=== PATIENT | male | born 1985 | race Caucasian/White ===

== ENCOUNTER 2016-05-27 07:50 | Emergency (ER) | payer OTHER ==
[2016-05-27 07:55] VITALS: TEMP 97.5; BMI 17.6
[2016-05-27] MEDS ORDERED: SODIUM CHLORIDE 1,000 ML IV STA (08:32)
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
[2016-05-27 08:55] LABS: BASOPHIL 0.3 % (0-2.0); EOSINOPHIL 0.1 % (0-4.5); MCH 27.8 pg (25.7-33.7); MCHC 32.6 g/dl (32.0-35.9); MEAN CELL VOLUME 85.1 fl (80-96); NEUTROPHILS 87.1 % (42.8-82.8); PLATELET COUNT 195 K/MM3 (134-434); RDW 14.2 % (11.9-15.9); WHITE BLOOD COUNT 16.2 K/mm3 (4.0-10.0)
[2016-05-27 09:28] LABS: ALBUMIN 4.6 g/dl (3.4-5.0); ALK PHOS 65 U/L (45-117); ANION GAP 10 (8-16); BILIRUBIN,TOTAL 0.6 mg/dL (0.2-1.0); CALCIUM 9.9 mg/dL (8.5-10.1); CO2 29 mmol/L (21-32); CREATININE 0.9 mg/dL (0.7-1.3); GLUCOSE,RANDOM 142 mg/dL (74-106); SGOT/AST 16 U/L (15-37); SGPT/ALT 17 U/L (12-78); TOT PROT 7.9 g/dl (6.4-8.2)
[2016-05-27] MEDS ORDERED: METOCLOPRAMIDE HCL INJECTION 10 MG/2 ML VIAL IVPB ONE (09:35)
[2016-05-27] MEDS ORDERED: FAMOTIDINE 20 MG/50 ML IVPB 20 MG in PREMIX 50 IVPB ONE (09:35)
[2016-05-27] MEDS ORDERED: morphine CARPU-JECT 2 MG/1 ML DISP.SYRIN IVPUSH ONE ×2 (09:35→12:16)
[2016-05-27] MEDS ORDERED: METOCLOPRAMIDE HCL INJECTION 10 MG/2 ML VIAL ONE (09:55)
[2016-05-27] MEDS ORDERED: morphine CARPU-JECT 4 MG/1 ML DISP.SYRIN ONE ×2 (09:55→12:24)
[2016-05-27] MEDS ORDERED: FAMOTIDINE 20 MG/50 ML IVPB 50 ML IVPB ONE (09:56)
[2016-05-27 10:04] LABS: URINE APPEARANCE CLEAR; URINE BILIRUBIN NEGATIVE (NEGATIVE); URINE BLOOD NEGATIVE (NEGATIVE); URINE COLOR AMBER; URINE GLUCOSE (UA) NEGATIVE (NEGATIVE); URINE KETONE NEGATIVE (NEGATIVE); URINE LEUK ESTERASE NEGATIVE (NEGATIVE); URINE NITRITE NEGATIVE (NEGATIVE); URINE UROBILINOGEN NEGATIVE E.U./dl (0.2-1.0)
[2016-05-27 10:07] LABS: URINE PROTEIN 1+ (NEGATIVE)
[2016-05-27 10:09] LABS: URINE MUCUS MANY; URINE RBC 4 /hpf (0-3); URINE WBC 3 /hpf (3-5)
[2016-05-27] MEDS ORDERED: LIDOCAINE VISCOUS 2% ORAL/TOP 20 ML UNIT-DOSE CUP MM ONE (10:41)
[2016-05-27] MEDS ORDERED: MAG HYDROX/AL HYDROX/SIMETH 30 ML UNIT-DOSE CUP PO ONE (10:41)
[2016-05-27] MEDS ORDERED: HYOSCYAMINE SULFATE 0.125 MG *ODT PO ONE (10:41)
[2016-05-27 10:53] LABS: URINE MARIJUANA THC POSITIVE ng/ml (CUTOFF=50)
[2016-05-27] MEDS ORDERED: MAG HYDROX/AL HYDROX/SIMETH 30 ML UNIT-DOSE CUP ONE (11:34)
[2016-05-27 12:50] VITALS: BP 147/88; PULSE 65
== END 2016-05-27 12:53 | disposition home or self-care (01) ==
LOC: JER 07:50
PROC: 3E0337Z Introduction of Electrolytic and Water Balance Substance into Peripheral Vein, Percutaneous Approach (ICD-10-PCS; principal; 2016-05-27)
PROC: 3E033GC Introduction of Other Therapeutic Substance into Peripheral Vein, Percutaneous Approach (ICD-10-PCS; 2016-05-27)
PROC: 3E033NZ Introduction of Analgesics, Hypnotics, Sedatives into Peripheral Vein, Percutaneous Approach (ICD-10-PCS; 2016-05-27)
PROC: 3E033NZ Introduction of Analgesics, Hypnotics, Sedatives into Peripheral Vein, Percutaneous Approach (ICD-10-PCS; 2016-05-27)
DX: K29.60 Other gastritis without bleeding (principal); G43.A0 Cyclical vomiting, in migraine, not intractable; T40.7X5A Adverse effect of cannabis (derivatives), initial encounter; Y92.038 Other place in apartment as the place of occurrence of the external cause
CPT/HCPCS: 36415; 80053; 80307; 81003; 81015; 83735; 85025; 99283-25

== ENCOUNTER 2016-05-27 19:11 | Emergency (ER) | payer OTHER ==
[2016-05-27 19:15] VITALS: BP 133/88; PULSE 61; TEMP 98.7; BMI 17.6
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
[2016-05-27] MEDS ORDERED: SODIUM CHLORIDE 0.9% 1000 ML INFUS.BAG IV ONE (20:17)
[2016-05-27] MEDS ORDERED: ONDANSETRON 4 MG/2 ML VIAL ONE (20:23)
[2016-05-27] MEDS ORDERED: KETOROLAC TROMETHAMINE 30 MG/1 ML VIAL IVPUSH ONE (20:36)
[2016-05-27] MEDS ORDERED: KETOROLAC TROMETHAMINE 30 MG/1 ML VIAL ONE (20:40)
== END 2016-05-27 21:03 | disposition home or self-care (01) ==
LOC: JER 19:11
PROC: 3E0333Z Introduction of Anti-inflammatory into Peripheral Vein, Percutaneous Approach (ICD-10-PCS; principal; 2016-05-27)
DX: R10.84 Generalized abdominal pain (principal); R11.2 Nausea with vomiting, unspecified; K29.00 Acute gastritis without bleeding; R16.0 Hepatomegaly, not elsewhere classified; F12.10 Cannabis abuse, uncomplicated
CPT/HCPCS: 99281-25

== ENCOUNTER 2017-03-11 18:06 | Emergency (ER) | payer OTHER ==
--- NOTE | 2017-03-11 19:04 | PDOC ---
Rapid Medical Evaluation Time Seen by Provider: 03/11/17 18:28 Medical Evaluation: Allergies Allergy/AdvReac Type Severity Reaction Status Date / Time No Known Allergies Allergy Verified 05/27/16 19:13 03/11/17 19:02 I have performed a brief in-person evaluation of this patient. The patient presents with a chief complaint of: "Pancreatitis" +n/v/f/c Pertinent physical exam findings:diffuse abd pain I have ordered the following:cbc,cmp, amylase,lipase,lactic acid, ua The patient will proceed to the ED for further evaluation.
[2017-03-11 19:07] VITALS: BP 126/52; PULSE 68; TEMP 98.6; BMI 18.3
[2017-03-11 19:22] LABS: BASO % 0.1 % (0-2.0); EOS % 0.1 % (0-4.5); LYMPH # 0.7; MCHC 32.4 g/dl (32.0-35.9); MEAN CELL VOLUME 86.3 fl (80-96); MEAN PLT VOLUME 9.1 fl (7.5-11.1); NEUT # 15.9 #; NEUT % 89.8 % (42.8-82.8); PLATELET COUNT 198 K/MM3 (134-434); WHITE BLOOD COUNT 17.7 K/mm3 (4.0-10.0)
[2017-03-11] MEDS ORDERED: SODIUM CHLORIDE 1,000 ML IV STA (19:49)
[2017-03-11 19:50] LABS: ALBUMIN 4.4 g/dl (3.4-5.0); ALK PHOS 76 U/L (45-117); AMYLASE 54 U/L (25-115); ANION GAP 6 (8-16); BILIRUBIN,TOTAL 0.6 mg/dL (0.2-1.0); CALCIUM 9.5 mg/dL (8.5-10.1); CO2 28 mmol/L (21-32); CREATININE 0.8 mg/dL (0.7-1.3); GLUCOSE,RANDOM 113 mg/dL (74-106); SGOT/AST 15 U/L (15-37); SGPT/ALT 20 U/L (12-78); TOT PROT 7.7 g/dl (6.4-8.2)
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
[2017-03-11] MEDS ORDERED: ACETAMINOPHEN 1000 MG/100 ML VIAL (NON FORMULARY) IVPB ONE (20:28)
[2017-03-11 21:51] LABS: PLATELET ESTIMATE ADEQUATE
[2017-03-11] MEDS ORDERED: KETOROLAC TROMETHAMINE 30 MG/1 ML VIAL IVPUSH ONE (22:23)
[2017-03-11] MEDS ORDERED: KETOROLAC TROMETHAMINE 30 MG/1 ML VIAL ONE (22:24)
[2017-03-11] MEDS ORDERED: MAG HYDROX/AL HYDROX/SIMETH 30 ML UNIT-DOSE CUP ONE (22:25)
== END 2017-03-11 22:30 | disposition home or self-care (01) ==
LOC: JER 18:06
PROC: 3E0337Z Introduction of Electrolytic and Water Balance Substance into Peripheral Vein, Percutaneous Approach (ICD-10-PCS; principal; 2017-03-11)
PROC: 3E033NZ Introduction of Analgesics, Hypnotics, Sedatives into Peripheral Vein, Percutaneous Approach (ICD-10-PCS; 2017-03-11)
DX: K86.89 Other specified diseases of pancreas (principal); F11.20 Opioid dependence, uncomplicated; Z76.5 Malingerer [conscious simulation]
CPT/HCPCS: 36415; 74020-TC; 76705-TC; 80053; 82150; 83690; 85025; 99281-25

== ENCOUNTER 2017-03-16 15:29 | Emergency (ER) | payer OTHER ==
[2017-03-16 15:40] VITALS: BP 149/72; PULSE 50; TEMP 98.3; BMI 17.6
--- NOTE | 2017-03-16 15:44 | PDOC ---
Rapid Medical Evaluation Time Seen by Provider: 03/16/17 15:38 Medical Evaluation: Allergies Allergy/AdvReac Type Severity Reaction Status Date / Time No Known Allergies Allergy Verified 03/11/17 21:23 I have performed a brief in-person evaluation of this patient. The patient presents with a chief complaint of: vomiting x 5 days with abdominal pain; prior history of pancreatitis and enlarged liver Pertinent physical exam findings: Moderately dry mucous membranes, RUQ and RLQ TTP. No rebound, guarding or rigidity I have ordered the following: UA/culture, labs The patient will proceed to the ED for further evaluation. 03/16/17 15:44
[2017-03-16 16:26] LABS: BASO % 0.4 % (0-2.0); EOS % 0.8 % (0-4.5); HEMATOCRIT 46.1 % (35.4-49); HEMOGLOBIN 14.9 GM/dL (11.7-16.9); LYMPH % 10.7 % (8-40); MCH 27.5 pg (25.7-33.7); MCHC 32.3 g/dl (32.0-35.9); MEAN CELL VOLUME 85.1 fl (80-96); MEAN PLT VOLUME 9.3 fl (7.5-11.1); MONO % 9.2 % (3.8-10.2); NEUT % 78.9 % (42.8-82.8); PLATELET COUNT 182 K/MM3 (134-434); RBC 5.42 M/mm3 (4.00-5.60); RDW 13.9 % (11.9-15.9); WHITE BLOOD COUNT 11.3 K/mm3 (4.0-10.0)
[2017-03-16 17:18] LABS: ANION GAP 7 (8-16); BLOOD UREA NITROGEN 16 mg/dL (7-18); CALCIUM 8.6 mg/dL (8.5-10.1); CHLORIDE 105 mmol/L (98-107); CO2 30 mmol/L (21-32); GLUCOSE,RANDOM 88 mg/dL (74-106); POTASSIUM 3.5 mmol/L (3.5-5.1); SGOT/AST 10 U/L (15-37); SGPT/ALT 17 U/L (12-78); SODIUM 142 mmol/L (136-145)
[2017-03-16 17:20] LABS: ALK PHOS 61 U/L (45-117); BILIRUBIN,TOTAL 1.2 mg/dL (0.2-1.0); TOT PROT 6.8 g/dl (6.4-8.2)
[2017-03-16] MEDS ORDERED: SODIUM CHLORIDE 0.9% 1000 ML INFUS.BAG IV ONE (19:08)
[2017-03-16] MEDS ORDERED: METOCLOPRAMIDE HCL INJECTION 10 MG/2 ML VIAL IVPUSH ONE (19:08)
[2017-03-16] MEDS ORDERED: LIDOCAINE VISCOUS 2% ORAL/TOP 20 ML UNIT-DOSE CUP MM ONE (19:09)
[2017-03-16] MEDS ORDERED: MAG HYDROX/AL HYDROX/SIMETH 355 ML ORAL.SUSP PO ONE (19:09)
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
[2017-03-16] MEDS ORDERED: FAMOTIDINE 20 MG/50 ML IVPB 20 MG/50 ML MG IVPB ONE ×2 (19:45→20:04)
[2017-03-16] MEDS ORDERED: LIDOCAINE VISCOUS 2% ORAL/TOP 20 ML UNIT-DOSE CUP ONE (20:03)
[2017-03-16] MEDS ORDERED: MAG HYDROX/AL HYDROX/SIMETH 30 ML UNIT-DOSE CUP ONE (20:04)
[2017-03-16] MEDS ORDERED: METOCLOPRAMIDE HCL INJECTION 10 MG/2 ML VIAL ONE (20:04)
[2017-03-16] MEDS ORDERED: DICYCLOMINE HCL 10 MG CAPSULE PO ONE (22:13)
[2017-03-16] MEDS ORDERED: DICYCLOMINE HCL 10 MG CAPSULE ONE (22:38)
== END 2017-03-16 22:41 | disposition home or self-care (01) ==
LOC: JER 15:29
PROC: 3E033GC Introduction of Other Therapeutic Substance into Peripheral Vein, Percutaneous Approach (ICD-10-PCS; principal; 2017-03-16)
DX: Z76.5 Malingerer [conscious simulation] (principal); R11.2 Nausea with vomiting, unspecified; Z87.19 Personal history of other diseases of the digestive system
CPT/HCPCS: 36415; 76705-TC; 80053; 83605; 85025; 99283-25

== ENCOUNTER 2018-01-25 13:54 | Emergency (ER) | payer SELFPAY ==
[2018-01-25 14:22] VITALS: TEMP 99.2; BMI 41.8
[2018-01-25] MEDS ORDERED: ONDANSETRON 4 MG/2 ML VIAL ONE (14:52)
[2018-01-25] MEDS ORDERED: morphine CARPU-JECT 2 MG/1 ML DISP.SYRIN IVPUSH ONE ×2 (14:54→17:50)
[2018-01-25] MEDS ORDERED: ONDANSETRON 4 MG/2 ML VIAL IVPUSH ONE (14:54)
[2018-01-25] MEDS ORDERED: SODIUM CHLORIDE 1,000 ML IV STA ×2 (14:54→16:10)
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
[2018-01-25] MEDS ORDERED: morphine SULFATE 4 MG/ML VIAL ONE (15:09)
[2018-01-25 15:14] LABS: BASO % 0.3 % (0-2.0); EOS % 0.1 % (0-4.5); HEMATOCRIT 49.3 % (35.4-49); HEMOGLOBIN 16.4 GM/dL (11.7-16.9); LYMPH % 9.1 % (8-40); MCH 28.5 pg (25.7-33.7); MCHC 33.3 g/dl (32.0-35.9); MEAN CELL VOLUME 85.7 fl (80-96); MEAN PLT VOLUME 9.1 fl (7.5-11.1); MONO % 12.4 % (3.8-10.2); NEUT % 78.1 % (42.8-82.8); PLATELET COUNT 262 K/MM3 (134-434); RBC 5.76 M/mm3 (4.00-5.60); RDW 14.3 % (11.9-15.9); WHITE BLOOD COUNT 12.9 K/mm3 (4.0-10.0)
[2018-01-25 15:45] LABS: ALBUMIN 4.6 g/dl (3.4-5.0); ALK PHOS 82 U/L (45-117); AMYLASE 96 U/L (25-115); ANION GAP 9 MMOL/L (8-16); BILIRUBIN,TOTAL 0.9 mg/dL (0.2-1); BLOOD UREA NITROGEN 19 mg/dL (7-18); CALCIUM 9.6 mg/dL (8.5-10.1); CHLORIDE 97 mmol/L (98-107); CO2 32 mmol/L (21-32); CREATININE 1.1 mg/dL (0.55-1.3); GLUCOSE,RANDOM 91 mg/dL (74-106); LIPASE 159 U/L (73-393); MAGNESIUM 2.4 mg/dL (1.8-2.4); POTASSIUM 3.8 mmol/L (3.5-5.1); SGOT/AST 15 U/L (15-37); SGPT/ALT 16 U/L (13-61); SODIUM 138 mmol/L (136-145); TOT PROT 8.3 g/dl (6.4-8.2)
[2018-01-25] MEDS ORDERED: MAG HYDROX/AL HYDROX/SIMETH 30 ML UNIT-DOSE CUP PO ONE (16:11)
[2018-01-25] MEDS ORDERED: LIDOCAINE VISCOUS 2% ORAL/TOP 20 ML UNIT-DOSE CUP MM ONE (16:11)
[2018-01-25] MEDS ORDERED: MAG HYDROX/AL HYDROX/SIMETH 30 ML UNIT-DOSE CUP ONE (16:44)
[2018-01-25] MEDS ORDERED: LIDOCAINE VISCOUS 2% ORAL/TOP 20 ML UNIT-DOSE CUP ONE (16:44)
[2018-01-25] MEDS ORDERED: HYOSCYAMINE SULFATE 0.125 MG *ODT PO ONE (16:56)
[2018-01-25] MEDS ORDERED: KETOROLAC TROMETHAMINE 30 MG/1 ML VIAL IVPUSH ONE (17:03)
[2018-01-25] MEDS ORDERED: KETOROLAC TROMETHAMINE 30 MG/1 ML VIAL ONE (17:40)
[2018-01-25] MEDS ORDERED: FAMOTIDINE 20 MG/50 ML IVPB 20 MG/50 ML MG IVPB ONE ×2 (17:51→17:58)
[2018-01-25] MEDS ORDERED: LORazepam 0.5 MG TABLET ONE (17:58)
[2018-01-25] MEDS ORDERED: MORPHINE SULFATE 2 MG/ML VIAL ONE (18:05)
[2018-01-25 19:12] VITALS: BP 109/56; PULSE 69
== END 2018-01-25 19:15 | disposition home or self-care (01) ==
LOC: JER 13:54
PROC: 3E033GC Introduction of Other Therapeutic Substance into Peripheral Vein, Percutaneous Approach (ICD-10-PCS; principal; 2018-01-25)
PROC: 3E0333Z Introduction of Anti-inflammatory into Peripheral Vein, Percutaneous Approach (ICD-10-PCS; 2018-01-25)
PROC: 3E033NZ Introduction of Analgesics, Hypnotics, Sedatives into Peripheral Vein, Percutaneous Approach (ICD-10-PCS; 2018-01-25)
PROC: 3E0337Z Introduction of Electrolytic and Water Balance Substance into Peripheral Vein, Percutaneous Approach (ICD-10-PCS; 2018-01-25)
DX: F12.20 Cannabis dependence, uncomplicated (principal); G43.A0 Cyclical vomiting, in migraine, not intractable
CPT/HCPCS: 36415; 80053; 82150; 83690; 83735; 85025; 99282-25; J7030

== ENCOUNTER 2018-06-12 05:23 | Emergency (ER) | payer SELFPAY ==
[2018-06-12 05:49] VITALS: BP 120/61; PULSE 77; TEMP 97.8; BMI 19.0
[2018-06-12] MEDS ORDERED: ACETAMINOPHEN 500 MG TABLET (FP) PO ONE (06:01)
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
[2018-06-12] MEDS ORDERED: ACETAMINOPHEN 325 MG TABLET (FP) ONE (06:30)
--- NOTE | 2018-06-12 06:49 | PDOC ---
Attending Attestation - Resident Resident Name: Bill Seguraorn - ED Attending Attestation I have performed the following: I have examined & evaluated the patient, The case was reviewed & discussed with the resident, I agree w/resident's findings & plan, Exceptions are as noted - HPI HPI: 06/12/18 06:46 32 yo male with no pmhx here with c/o laceration right hand. pt states day prior he hit a glass window, sustaining laceration. now mild pain. tetanus utd. no f/c no weakenss or numbness. no other comlaints. he soaked it at home. injury happened day prior. - Physicial Exam PE: 06/12/18 06:47 awake alert lungs clear bilaterally heart rrr no mrg abd soft nt nd right hand with laceration. n/v intact. - Medical Decision Making 06/12/18 06:47 due to delay in presentation , no sutures. pt wound cleaned, tetanus uptodate. xray r/o fb fracture. if negative dc with local wound care. 06/12/18 07:25 pt unwilling to wait for xray, will dc on keflex. to home.
--- NOTE | 2018-06-12 07:17 | PDOC ---
*Physical Exam - Vital Signs Last Vital Signs Temp Pulse Resp BP Pulse Ox 97.8 F 77 18 120/61 100 06/12/18 05:46 06/12/18 05:46 06/12/18 05:46 06/12/18 05:46 06/12/18 05:46 - Physical Exam Comments: 06/12/18 07:18 continuation of care as from Resident Cherie, see note for further history ED Treatment Course - Medications Given in the ED: ED Medications Discontinued Medications Generic Name Dose Route Start Last Admin Trade Name Angelo PRN Reason Stop Dose Admin Acetaminophen 975 mg 06/12/18 06:01 06/12/18 06:33 Tylenol - PO 06/12/18 06:02 975 mg ONCE ONE Administration Medical Decision Making - Medical Decision Making 06/12/18 07:19 Patient would not like to wait for Xray Patient's hand laceration from two days ago, not subject to stiches or wash out Antbiotics will be prescribed and patient should f/u with PCP 06/12/18 07:39 bacitracin applied to the area, gauze placed over two open wounds discussed with patient to keep area dry and clean *DC/Admit/Observation/Transfer Diagnosis at time of Disposition: Hand injury Qualifiers: Encounter type: initial encounter Laterality: right Qualified Code(s): S69.91XA - Unspecified injury of right wrist, hand and finger(s), initial encounter - Discharge Dispostion Disposition: HOME Condition at time of disposition: Improved - Prescriptions Prescriptions: Cephalexin [Keflex] 500 mg PO TID #15 capsule - Referrals - Patient Instructions Printed Discharge Instructions: DI for Hand Injury Additional Instructions: You came to the hospital for an injury to your hand. We monitored you while you were here. To treat any infection in your hand we are going to prescribe you an antibiotic. Please take the antibiotic: Keflex three times a day by mouth for one week Please soak your hand twice a day in warm water and soap. Please keep the open areas dry and clean Please make an appointment with your primary care physician within one week to follow up. Return to the Emergency Department if you have nausea, vomiting, fevers, your hand becomes cold, numbness, tingling, headache, or shortness of breath. - Post Discharge Activity
[2018-06-12] MEDS ORDERED: BACITRACIN 0.9 GM PACKET ONE (07:28)
[2018-06-12] MEDS ORDERED: BACITRACIN 15 GM TUBE TOPICAL OINTMENT TP ONE (07:40)
== END 2018-06-12 08:20 | disposition home or self-care (01) ==
LOC: JER 05:23
DX: S61.210A Laceration without foreign body of right index finger without damage to nail, initial encounter (principal); S60.511A Abrasion of right hand, initial encounter; W01.110A Fall on same level from slipping, tripping and stumbling with subsequent striking against sharp glass, initial encounter; Y93.89 Activity, other specified; Y92.89 Other specified places as the place of occurrence of the external cause; Y99.8 Other external cause status
CPT/HCPCS: 99282-25

== ENCOUNTER 2019-04-25 16:41 | Inpatient (IN) | payer OTHER ==
[2019-04-25 16:51] VITALS: BMI 18.3
[2019-04-25] MEDS ORDERED: ONDANSETRON 4 MG/2 ML VIAL IVPUSH ONE (17:05)
--- NOTE | 2019-04-25 17:05 | PDOC ---
Rapid Medical Evaluation Chief Complaint: Pain Time Seen by Provider: 04/25/19 16:47 Medical Evaluation: Allergies Allergy/AdvReac Type Severity Reaction Status Date / Time No Known Allergies Allergy Verified 04/25/19 16:47 Vital Signs Temp Pulse Resp BP Pulse Ox 98.1 F 56 L 18 116/72 97 04/25/19 16:48 04/25/19 16:48 04/25/19 16:48 04/25/19 16:48 04/25/19 16:48 04/25/19 17:04 Pt c/o : n/v, weakness. hx of the same, no other complaints Pt on brief exam: dry heaving, vss, + epigastric tenderness Pt ordered for : labs, meds, ivf Pt to proceed to the ED Discharge Disposition - Diagnosis Intractable nausea and vomiting - Referrals - Patient Instructions - Post Discharge Activity
[2019-04-25] MEDS ORDERED: PANTOPRAZOLE SODIUM 40 MG VIAL IVPUSH ONE (17:06)
[2019-04-25] MEDS ORDERED: SODIUM CHLORIDE 1,000 ML IV STA ×2 (17:06→19:10)
[2019-04-25] MEDS ORDERED: morphine CARPU-JECT 2 MG/1 ML DISP.SYRIN IVPUSH ONE (17:56)
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
[2019-04-25] MEDS ORDERED: PANTOPRAZOLE SODIUM 40 MG VIAL ONE (18:28)
[2019-04-25] MEDS ORDERED: ONDANSETRON 4 MG/2 ML VIAL ONE (18:28)
[2019-04-25 18:40] LABS: BASO % 0.2 % (0-2.0); HEMATOCRIT 45.9 % (35.4-49); HEMOGLOBIN 14.9 GM/dL (11.7-16.9); LYMPH % 2.7 % (8-40); MCH 27.9 pg (25.7-33.7); MCHC 32.3 g/dl (32.0-35.9); MEAN CELL VOLUME 86.4 fl (80-96); MEAN PLT VOLUME 8.7 fl (7.5-11.1); MONO % 7.2 % (3.8-10.2); NEUT % 89.9 % (42.8-82.8); RBC 5.31 M/mm3 (4.00-5.60); RDW 14.3 % (11.9-15.9); WHITE BLOOD COUNT 16.9 K/mm3 (4.0-10.0)
[2019-04-25 19:05] LABS: ALBUMIN 4.4 g/dl (3.4-5.0); BILIRUBIN,TOTAL 0.7 mg/dL (0.2-1); BLOOD UREA NITROGEN 10.2 mg/dL (7-18); CALCIUM 9.6 mg/dL (8.5-10.1); CREATININE 0.9 mg/dL (0.55-1.3); POTASSIUM 4.2 mmol/L (3.5-5.1); TOT PROT 7.6 g/dl (6.4-8.2)
[2019-04-25 19:06] LABS: PLATELET COUNT 236 K/MM3 (134-434); PLATELET ESTIMATE ADEQUATE
[2019-04-25] MEDS ORDERED: METOCLOPRAMIDE HCL INJECTION 10 MG/2 ML VIAL IVPB ONE (19:10)
[2019-04-25] MEDS ORDERED: METOCLOPRAMIDE HCL INJECTION 10 MG/2 ML VIAL ONE (19:15)
[2019-04-25] MEDS ORDERED: MORPHINE SULFATE 2 MG/ML VIAL ONE (19:15)
[2019-04-25 20:11] LABS: PH,URINE >= 9.0 (5.0-8.0); URINE APPEARANCE CLOUDY; URINE BILIRUBIN NEGATIVE (NEGATIVE); URINE COLOR YELLOW; URINE GLUCOSE (UA) NEGATIVE (NEGATIVE); URINE KETONE NEGATIVE (NEGATIVE); URINE LEUK ESTERASE NEGATIVE (NEGATIVE); URINE NITRITE NEGATIVE (NEGATIVE); URINE PROTEIN TRACE (NEGATIVE)
[2019-04-25 20:16] LABS: COCAINE, UR NEGATIVE ng/ml (CUTOFF=300); METHADONE, UR NEGATIVE ng/ml (CUTOFF=300); OPIATES, URI NEGATIVE ng/ml (CUTOFF=300); PHENCYCLIDINE,URINE NEGATIVE ng/ml (CUTOFF=25); URINE AMPHETAMINES NEGATIVE ng/ml (CUTOFF=500); URINE BARBITURATES NEGATIVE ng/ml (CUTOFF=200); URINE BENZODIAZEPINES NEGATIVE ng/ml (CUTOFF=200)
[2019-04-25] MEDS ORDERED: LORazepam 2 MG/ML SDV VIAL ONE (20:30)
[2019-04-25 21:02] LABS: HEMATOCRIT 42.8 % (35.4-49); HEMOGLOBIN 13.9 GM/dL (11.7-16.9); MCH 27.9 pg (25.7-33.7); MCHC 32.5 g/dl (32.0-35.9); MEAN CELL VOLUME 85.8 fl (80-96); MEAN PLT VOLUME 8.5 fl (7.5-11.1); PLATELET COUNT 202 K/MM3 (134-434); RBC 4.99 M/mm3 (4.00-5.60); RDW 14.2 % (11.9-15.9); WHITE BLOOD COUNT 18.3 K/mm3 (4.0-10.0)
--- NOTE | 2019-04-25 22:39 | PDOC ---
*Physical Exam - Vital Signs Last Vital Signs Temp Pulse Resp BP Pulse Ox 99.9 F H 70 18 130/69 99 04/25/19 21:47 04/25/19 21:47 04/25/19 21:47 04/25/19 21:47 04/25/19 21:47 - Physical Exam 04/25/19 22:43 General Appearance: Nourished. No Apparent Distress HEENT: No Pharyngeal Erythema, Tonsillar Exudate, Tonsillar Erythema Neck: No Cervical Lymphadenopathy Respiratory/Chest: Lungs Clear, Normal Breath Sounds. No Crackles, Rales, Rhonchi, Wheezing Cardiovascular: Regular Rhythm, Regular Rate. No Murmur, Gallops, Rubs Gastrointestinal/Abdominal: Normal Bowel Sounds, Soft. Mild Epigastric discomfort with palpation. No Guarding, Rebound, Musculoskeletal: No CVA Tenderness Extremity: Normal Capillary Refill Integumentary: Normal Color, Dry, Warm Neurologic: Fully Oriented, Alert, Normal Mood/Affect, Normal Response, ED Treatment Course - LABORATORY CBC & Chemistry Diagram: 04/25/19 20:55 04/25/19 18:15 - ADDITIONAL ORDERS Additional order review: Laboratory Results 04/25/19 04/25/19 04/25/19 19:10 19:10 18:15 Sodium 138 Potassium 4.2 Chloride 104 Carbon Dioxide 29 Anion Gap 5 L BUN 10.2 Creatinine 0.9 Est GFR (CKD-EPI)AfAm 131.44 Est GFR (CKD-EPI)NonAf 113.41 Random Glucose 122 H Calcium 9.6 Magnesium 2.0 Total Bilirubin 0.7 AST 10 L ALT 17 Alkaline Phosphatase 69 Total Protein 7.6 Albumin 4.4 Lipase 79 Urine Color Yellow Urine Appearance Cloudy Urine pH >= 9.0 H D Ur Specific [place] 1.023 Urine Protein Trace Urine Glucose (UA) Negative Urine Ketones Negative Urine Blood Negative Urine Nitrite Negative Urine Bilirubin Negative Urine Urobilinogen 1.0 Ur Leukocyte Esterase Negative Opiates Screen Negative Methadone Screen Negative Barbiturate Screen Negative Phencyclidine Screen Negative Ur Amphetamines Screen Negative MDMA (Ecstasy) Screen Negative Benzodiazepines Screen Negative Cocaine Screen Negative U Marijuana (THC) Screen Positive A* 04/25/19 04/25/19 20:55 18:15 RBC 4.99 5.31 MCV 85.8 86.4 MCHC 32.5 32.3 RDW 14.2 14.3 MPV 8.5 8.7 Neutrophils % 89.9 H Lymphocytes % 2.7 L D Monocytes % 7.2 Eosinophils % 0.0 D Basophils % 0.2 - Medications Given in the ED: ED Medications Discontinued Medications Generic Name Dose Route Start Last Admin Trade Name Freq PRN Reason Stop Dose Admin Diphenhydramine HCl 25 mg 04/25/19 20:02 04/25/19 20:44 Benadryl Injection - IVPUSH 04/25/19 20:03 25 mg ONCE ONE Administration Sodium Chloride 1,000 mls @ 1,000 mls/hr 04/25/19 17:06 04/25/19 18:26 Normal Saline - IV 04/25/19 18:05 1,000 mls/hr ASDIR STA Administration Sodium Chloride 1,000 mls @ 1,000 mls/hr 04/25/19 19:10 04/25/19 19:23 Normal Saline - IV 04/25/19 20:09 1,000 mls/hr ASDIR STA Administration Lorazepam 1 mg 04/25/19 20:02 04/25/19 20:44 Ativan Injection - IVPUSH 04/25/19 20:03 1 mg ONCE ONE Administration Metoclopramide HCl 10 mg 04/25/19 19:10 04/25/19 19:23 Reglan Injection - IVPB 04/25/19 19:11 10 mg ONCE ONE Administration Morphine Sulfate 2 mg 04/25/19 17:56 04/25/19 19:22 Morphine Injection - IVPUSH 04/25/19 17:57 2 mg ONCE ONE Administration Ondansetron HCl 4 mg 04/25/19 17:05 04/25/19 18:35 Zofran Injection IVPUSH 04/25/19 17:06 4 mg ONCE ONE Administration Pantoprazole Sodium 40 mg 04/25/19 17:06 04/25/19 18:35 Protonix Iv IVPUSH 04/25/19 17:07 40 mg ONCE ONE Administration ED Progress Note - Progress Note Progress Note: 04/25/19 22:43 The patient is a 33 year old male with a history of cannabanoid hyperemasis who presented to the ED for evaluation of abdominal pain, nausea, vomiting, and inability to tolerate PO intake similar to his prior episodes of cannabanoid hyperemasis. The patient's lab work up has been unremarkable thus far besides an increasing WBC form 16 to 18. He is pending CT abdomen/pelvis and reassessment. Medical Decision Making - Medical Decision Making 04/26/19 06:38 CT abdomen/pelvis was unremarkable. The patient continues to be unable to tolerate PO intake despite multiple attempts. The patient continues to complain of persistent abdominal pain. Given his persistent symptoms, he will require admission for further monitoring and management. Discharge - Discharge Information Problems reviewed: Yes Clinical Impression/Diagnosis: Intractable nausea and vomiting, Abdominal pain Condition: Stable - Admission Yes - Follow up/Referral - Patient Discharge Instructions - Post Discharge Activity
[2019-04-26] MEDS ORDERED: SODIUM CHLORIDE 1,000 ML IV SCH (01:45)
[2019-04-26] MEDS ORDERED: DEXTROSE 5%-NORMAL SALINE 1,000 ML IV SCH (03:00)
[2019-04-26] MEDS ORDERED: ONDANSETRON 4 MG/2 ML VIAL IVPUSH PRN (03:02)
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
[2019-04-26] MEDS: ACETAMINOPHEN 1000 MG/100 ML VIAL (NON FORMULARY) IVPB PRN ×2 (04:54→10:17)
[2019-04-26 06:19] VITALS: BP 123/84; PULSE 94; TEMP 99.6
[2019-04-26] MEDS ORDERED: PROCHLORPERAZINE INJECTION 10 MG/2 ML VIAL IVPB ONE (09:02)
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
[2019-04-26 09:14] LABS: HEMATOCRIT 39.5 % (35.4-49); HEMOGLOBIN 12.9 GM/dL (11.7-16.9); MCH 27.7 pg (25.7-33.7); MCHC 32.6 g/dl (32.0-35.9); MEAN CELL VOLUME 84.8 fl (80-96); MEAN PLT VOLUME 8.7 fl (7.5-11.1); PLATELET COUNT 216 K/MM3 (134-434); RBC 4.65 M/mm3 (4.00-5.60); RDW 14.1 % (11.9-15.9); WHITE BLOOD COUNT 16.3 K/mm3 (4.0-10.0)
[2019-04-26 09:58] LABS: ALBUMIN 3.4 g/dl (3.4-5.0); BILIRUBIN,TOTAL 0.6 mg/dL (0.2-1); BLOOD UREA NITROGEN 6.9 mg/dL (7-18); CALCIUM 8.8 mg/dL (8.5-10.1); CREATININE 0.9 mg/dL (0.55-1.3); MAGNESIUM 1.7 mg/dL (1.8-2.4); PHOSPHOROUS 2.5 mg/dL (2.5-4.9); POTASSIUM 3.5 mmol/L (3.5-5.1); TOT PROT 6.3 g/dl (6.4-8.2)
[2019-04-26] MEDS ORDERED: ENOXAPARIN NA (PORCINE) 40 MG/0.4 ML DISP.SYRIN SQ SCH (10:00)
[2019-04-26] MEDS ORDERED: PANTOPRAZOLE SODIUM 40 MG VIAL IVPUSH SCH (10:00)
[2019-04-26] MEDS ORDERED: NICOTINE 14 MG/24 HOURS TOPICAL PATCH TD SCH (10:00)
[2019-04-26] MEDS ORDERED: MAGNESIUM SULF 50% (8.12 MEQ/2 ML-1 GM VIAL) IVPB ONE (12:02)
[2019-04-26] MEDS ORDERED: PROCHLORPERAZINE INJECTION 10 MG/2 ML VIAL IVPB PRN (16:13)
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
[2019-04-26] MEDS ORDERED: diphenhydrAMINE HCL 25 MG CAPSULE (FP) PO ONE (19:00)
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
== END 2019-04-26 18:53 | disposition left against medical advice (07) | DRG 770 ==
LOC: JER 16:41 → JERBED 04-26 02:21 → J6S 04-26 04:21
PROVIDERS: ADMIT Internal Medicine; ATTEND Internal Medicine
DX: F12.188 Cannabis abuse with other cannabis-induced disorder (principal); R11.2 Nausea with vomiting, unspecified; F12.90 Cannabis use, unspecified, uncomplicated; R10.9 Unspecified abdominal pain; F17.210 Nicotine dependence, cigarettes, uncomplicated
CPT/HCPCS: 36415; 74176-TC; 80053; 80307; 81003; 83690; 83735; 84100; 85025; 85027; 99285-25; J0131; J7030

== ENCOUNTER 2019-07-08 09:03 | Emergency (ER) | payer OTHER ==
[2019-07-08] MEDS ORDERED: FAMOTIDINE 20 MG/50 ML IVPB 20 MG/50 ML MG IVPB ONE ×2 (09:18→09:33)
[2019-07-08] MEDS ORDERED: ONDANSETRON 4 MG/2 ML VIAL IVPUSH ONE (09:18)
[2019-07-08] MEDS ORDERED: ACETAMINOPHEN 1000 MG/100 ML VIAL (NON FORMULARY) IVPB ONE (09:18)
[2019-07-08] MEDS ORDERED: LACTATED RINGERS SOLUTION 1000 ML INFUS.BAG IV ONE ×2 (09:19→10:39)
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
[2019-07-08 09:26] VITALS: BP 150/77; PULSE 63; TEMP 101; BMI 24.4
[2019-07-08] MEDS ORDERED: ONDANSETRON 4 MG/2 ML VIAL ONE (09:32)
[2019-07-08] MEDS ORDERED: ACETAMINOPHEN INJECTION 100 ML IVPB ONE (09:32)
[2019-07-08 09:42] LABS: BASO % 0.1 % (0-2.0); HEMATOCRIT 47.5 % (35.4-49); HEMOGLOBIN 15.4 GM/dL (11.7-16.9); LYMPH % 2.4 % (8-40); MCH 27.8 pg (25.7-33.7); MCHC 32.4 g/dl (32.0-35.9); MEAN CELL VOLUME 85.7 fl (80-96); MEAN PLT VOLUME 9.1 fl (7.5-11.1); MONO % 6.3 % (3.8-10.2); NEUT % 91.2 % (42.8-82.8); PLATELET COUNT 257 K/MM3 (134-434); RBC 5.55 M/mm3 (4.00-5.60); RDW 14.6 % (11.9-15.9); WHITE BLOOD COUNT 23.9 K/mm3 (4.0-10.0)
[2019-07-08] MEDS ORDERED: MAG HYDROX/AL HYDROX/SIMETH 30 ML UNIT-DOSE CUP PO ONE (09:50)
[2019-07-08] MEDS ORDERED: LIDOCAINE VISCOUS 2% ORAL/TOP 20 ML UNIT-DOSE CUP MM ONE (09:50)
--- NOTE | 2019-07-08 09:52 | PDOC ---
Documentation entered by Chip Blankenship SCRIBE, acting as scribe for Yue Rao DO. Yue Rao DO: This documentation has been prepared by the Shayna finch Nirvannie, SCRIBE, under my direction and personally reviewed by me in its entirety. I confirm that the documentation accurately reflects all work, treatment, procedures, and medical decision making performed by me. Attending Attestation - Resident Resident Name: ChristinaRuth - ED Attending Attestation I have performed the following: I have examined & evaluated the patient, The case was reviewed & discussed with the resident, I agree w/resident's findings & plan, Exceptions are as noted - HPI HPI: 07/08/19 09:55 The patient is a 33 year old male with a significant past medical history of gastritis, pancreatitis, pericardial effusion (s/p cardiac window), and ? cannabinoid hyperemesis who presents to the ED with 2 days of upper abdominal pain described as a soreness with nonbloody emesis. As per patient, he is unable to tolerate PO intake and endorses taking Tylenol at home, without relief secondary to vomiting. He notes smoking marijuana twice two days ago just prior to the onset of his symptoms. Patient notes his symptoms to feel similar to previous episodes of pancreatitis. While in the ED, per patient the only thing that helps him is Dilaudid for his pain, reglan, and benadryl (for his anxiety). Patient does not follow up with GI. He denies cough, chest pain, or shortness of breath. Allergies: NKDA - Physicial Exam PE: 07/08/19 09:59 Constitutional: Sleeping in the room but, moans in pain when awoken. Awake, alert, oriented. No acute distress. Head: Normocephalic. Atraumatic Eyes: PERRL. EOMI. Conjunctivae are not pale. ENT: Mucous membranes are moist and intact. Posterior pharynx without exudates or erythema. Uvula midline. Neck: Supple. Full ROM. No lymphadenopathy. Cardiovascular: Regular rate. Regular rhythm. S1, S2 regular. Distal pulses are 2+ and symmetric. Pulmonary/Chest: No evidence of respiratory distress. Clear to auscultation bilaterally No wheezing, rales or rhonchi. Abdominal: +Diffusely tender. Soft and non-distended. No rebound, guarding or rigidity. No organomegaly. No palpable masses. Good bowel sounds. Back: No CVA tenderness. Musculoskeletal: No edema. No cyanosis. No clubbing. Full range of motion in all extremities. No calf tenderness. Radial/pedal pulses are intact and 2+ bilaterally Skin: Skin is warm and dry. No petechiae. No purpura. Neurological: Alert and oriented to person, place, and time. Cranial nerves II-XII are grossly intact. Normal speech. Strength is grossly symmetric. No sensory deficits. Psychiatric: Good eye contact. Normal interaction, affect and behavior. - Medical Decision Making 07/08/19 10:11 a/p: 33yo male with hx of chronic pancreatitis and gastritis with abd pain and n/v x 2 days -smoked marijuana 2 days ago -states n/v - too numerous to count, nonbilious/nonbloody -last bm 2 days ago, nondistended -pt states this happens and has had similar episodes in the past -states maalox and dilaudid with benadryl fixes his pain -will send labs, zofran, pepcid, ivf hydration, iv tylenol -pt denies cough, sob, covid symptoms -will monitor and reassess 07/08/19 10:26 elevated wbc and lactate received ivf hydration and will repeat labs 07/08/19 10:55 lipase neg 07/08/19 10:55 lft normal cr normal electrolytes normal will repeat labs 07/08/19 12:15 pt feeling better, asking to drink apple juice repeat cbc improved pt has been seen sticking his fingers down his throat pt again asking for dilaudid stating that only dilaudid/morphine and benadryl will fix his nausea and vomiting pt has tolerated po meds 07/08/19 12:26 pending repeat lactate pt asking to go home has tolerated po 07/08/19 12:35 pt eloped prior to dc and prior to repeat vitals/lactate/labs pt walked with a steady gait Heart Score/ECG Review - ECG Intrepretation Comment:: 07/08/19 09:52 sinus with sinus arrhythmia at 65, nl axis, incomplete rbbb, no acute st/t wave findings Discharge - Discharge Information Problems reviewed: Yes Clinical Impression/Diagnosis: Abdominal pain, Nausea, Drug-seeking behavior Vomiting Qualifiers: Vomiting type: unspecified Vomiting Intractability: unspecified Nausea pre sence: unspecified Qualified Code(s): R11.10 - Vomiting, unspecified Condition: Unchanged/Unknown Disposition: ELOPED - Admission No - Additional Discharge Information Prescriptions: Famotidine [Pepcid] 20 mg PO DAILY #30 tablet Ondansetron [Zofran *Odt*] 4 mg SL TID #21 od.tablet - Follow up/Referral [place] [facility] [place] [facility] [place]] Edson Oquendo DO [Staff Physician] - - Patient Discharge Instructions Patient Printed Discharge Instructions: DI for Gastritis Additional Instructions: Discharge Instructions: You were seen in the emergency department for nausea, vomiting, and abdominal pain Home Care: - STOP using any marijuana or alcohol. These can cause or worsen your symptoms - Avoid taking any opiate medications. - If you feel that you have a problem with drugs or prescription medications, consider going to detox. You may go to [address] [place] [address] for evaluation at any time. - You have been prescribed zofran for nausea. This may be taken every 8 hours as needed. - You have also been prescribed Pepcid (famotidine). This should be taken twice daily until your symptoms resolve and then once daily. - It is very important that you follow up with a GI specialist. You have been given contact information for Dr Oquendo. Schedule an appointment within the next 1-2 weeks for evaluation. - Seek immediate care for worsening symptoms, vomiting blood, dehydration, or for any other medical emergency. - Post Discharge Activity
[2019-07-08 10:12] LABS: ALBUMIN 4.8 g/dl (3.4-5.0); ALK PHOS 69 U/L (45-117); ANION GAP 7 MMOL/L (8-16); BILIRUBIN,TOTAL 0.7 mg/dL (0.2-1); BLOOD UREA NITROGEN 14.5 mg/dL (7-18); CHLORIDE 106 mmol/L (98-107); CO2 27 mmol/L (21-32); GLUCOSE,RANDOM 115 mg/dL (74-106); LIPASE 113 U/L (73-393); POTASSIUM 4.1 mmol/L (3.5-5.1); SGOT/AST 16 U/L (15-37); SGPT/ALT 16 U/L (13-61); SODIUM 139 mmol/L (136-145); TOT PROT 8.2 g/dl (6.4-8.2)
[2019-07-08] MEDS ORDERED: LIDOCAINE VISCOUS 2% ORAL/TOP 20 ML UNIT-DOSE CUP ONE (10:32)
[2019-07-08] MEDS ORDERED: MAG HYDROX/AL HYDROX/SIMETH 30 ML UNIT-DOSE CUP ONE (10:32)
[2019-07-08 10:49] LABS: ANISOCYTOSIS 0; MACROCYTOSIS 0; PLATELET ESTIMATE NORMAL; TARGET CELLS 1+
[2019-07-08 11:11] LABS: INR 1.62 (0.83-1.09); PROTHROMBIN TIME (PATIENT) 19.2 SEC (9.7-13.0)
[2019-07-08 11:54] LABS: BILIRUBIN,DIRECT 0.2 mg/dL (0.0-0.2); LDH 211 U/L (87-246)
[2019-07-08 12:07] LABS: BASO % 0.2 % (0-2.0); HEMATOCRIT 39.9 % (35.4-49); HEMOGLOBIN 12.9 GM/dL (11.7-16.9); LYMPH % 3.5 % (8-40); MCH 27.6 pg (25.7-33.7); MCHC 32.4 g/dl (32.0-35.9); MEAN PLT VOLUME 8.9 fl (7.5-11.1); MONO % 6.8 % (3.8-10.2); NEUT % 89.5 % (42.8-82.8); PLATELET COUNT 205 K/MM3 (134-434); RBC 4.69 M/mm3 (4.00-5.60); RDW 14.4 % (11.9-15.9); WHITE BLOOD COUNT 19.2 K/mm3 (4.0-10.0)
--- NOTE | 2019-07-09 14:45 | EKG ---
Test Reason : Blood Pressure : / mmHG Vent. Rate : 065 BPM Atrial Rate : 065 BPM P-R Int : 140 ms QRS Dur : 092 ms QT Int : 392 ms P-R-T Axes : 082 084 080 degrees QTc Int : 407 ms NORMAL SINUS RHYTHM WITH SINUS ARRHYTHMIA BIATRIAL ENLARGEMENT INCOMPLETE RIGHT BUNDLE BRANCH BLOCK ABNORMAL ECG WHEN COMPARED WITH ECG OF 19-MAR-2012 09:44, NO SIGNIFICANT CHANGE WAS FOUND Confirmed by POLI FELDER MD ([id number]) on 07/09/2019 2:44:48 PM Referred By: Confirmed By:POLI FELDER MD
== END 2019-07-08 12:47 | disposition left against medical advice (07) ==
LOC: JER 09:03
PROC: 3E033GC Introduction of Other Therapeutic Substance into Peripheral Vein, Percutaneous Approach (ICD-10-PCS; principal; 2019-07-08)
DX: R10.10 Upper abdominal pain, unspecified (principal); R11.2 Nausea with vomiting, unspecified
CPT/HCPCS: 36415; 71045-TC-FY; 80053; 82248; 82550; 82553; 82728; 83605; 83615; 83690; 85025; 85610; 85730; 93005; 93010; 96365; 96375; 99285-25; J0131; U0003

== ENCOUNTER 2021-12-30 15:18 | Inpatient (IN) | payer OTHER ==
[2021-12-30 18:54] VITALS: BMI 19.0
[2021-12-30] MEDS ORDERED: hydrOXYzine PAMOATE 25 MG CAPSULE (FP) PO PRN (19:55)
[2021-12-30] MEDS ORDERED: DICYCLOMINE HCL 10 MG CAPSULE PO PRN (19:55)
[2021-12-30] MEDS ORDERED: BISMUTH SUBSALICYLATE 524 MG/30 ML PO PRN (19:55)
[2021-12-30] MEDS ORDERED: MAGNESIUM HYDROX 2400MG/30ML ORAL SUSPENSION 30 ML CUP PO PRN (19:55)
[2021-12-30] MEDS ORDERED: LOPERAMIDE HCL 2 MG CAPSULE PO PRN (19:55)
[2021-12-30] MEDS ORDERED: IBUPROFEN 400 MG TABLET (FP) PO PRN (19:55)
[2021-12-30] MEDS ORDERED: MAG HYDROX/AL HYDROX/SIMETH 30 ML UNIT-DOSE CUP PO PRN (19:55)
[2021-12-30] MEDS ORDERED: ONDANSETRON *ODT* 4 MG TABLET SL PRN (19:55)
[2021-12-30] MEDS ORDERED: MAGNESIUM CITRATE 300 ML BOTTLE PO PRN (19:55)
[2021-12-30] MEDS ORDERED: BENZOCAINE/MENTHOL (CHLORASEPTIC ) LOZENGE MM PRN (19:55)
[2021-12-30] MEDS ORDERED: NALOXONE HCL (KLOXXADO) 8 MG SPRAY NS PRN (19:55)
[2021-12-30] MEDS ORDERED: ACETAMINOPHEN 325 MG TABLET (FP) PO PRN (19:55)
[2021-12-30] MEDS: PRENATAL VITAMINS W/ FOLIC ACID TABLET (FP) PO SCH (21:34)
[2021-12-30] MEDS: IBUPROFEN 600 MG TABLET (FP) PO PRN (21:34)
[2021-12-30] MEDS: THIAMINE HCL 100 MG TABLET (FP) PO SCH (21:34)
[2021-12-30] MEDS: FAMOTIDINE 20 MG TABLET PO SCH (21:35)
[2021-12-30] MEDS: NICOTINE 10 MG CARTRIDGE (INHALER) IH PRN (21:49)
[2021-12-30] MEDS: METHOCARBAMOL 500 MG TABLET PO PRN (21:52)
[2021-12-30] MEDS: NICOTINE 21 MG/24 HOURS TOPICAL PATCH TD SCH (21:56)
[2021-12-30] MEDS ORDERED: MELATONIN 5 MG TABLETS PO SCH (22:00)
[2021-12-31] MEDS ORDERED: methaDONE HCL 10 MG TABLET (FOR DETOX USE ONLY) PO ONE (09:52)
[2021-12-31] MEDS: diazePAM 5 MG TABLET PO SCH ×3 (10:21→22:18)
[2021-12-31] MEDS: hydrOXYzine PAMOATE 25 MG CAPSULE (FP) PO PRN ×2 (10:23→18:43)
[2021-12-31] MEDS: FAMOTIDINE 20 MG TABLET PO SCH (10:23)
[2021-12-31] MEDS: PRENATAL VITAMINS W/ FOLIC ACID TABLET (FP) PO SCH (10:23)
[2021-12-31] MEDS: NICOTINE 21 MG/24 HOURS TOPICAL PATCH TD SCH (10:23)
[2021-12-31] MEDS: NICOTINE 10 MG CARTRIDGE (INHALER) IH PRN (10:24)
[2021-12-31] MEDS: IBUPROFEN 600 MG TABLET (FP) PO PRN (12:38)
[2021-12-31] MEDS: ACETAMINOPHEN 325 MG TABLET (FP) PO PRN (13:20)
[2021-12-31] MEDS: diazePAM 5 MG TABLET PO PRN (13:31)
[2021-12-31] MEDS ORDERED: BENZOCAINE 20 % GEL TUBE MM PRN (13:49)
[2021-12-31 14:22] LABS: HEMATOCRIT 40.9 % (35.4-49); HEMOGLOBIN 13.5 GM/dL (11.7-16.9); MCH 28.9 pg (25.7-33.7); MCHC 32.9 g/dl (32.0-35.9); MEAN CELL VOLUME 87.8 fl (80-96); MEAN PLT VOLUME 8.4 fl (7.5-11.1); PLATELET COUNT 243 10^3/uL (134-434); RBC 4.66 M/mm3 (4.00-5.60); RDW 14.7 % (11.9-15.9); WHITE BLOOD COUNT 8.3 K/mm3 (4.0-10.0)
[2021-12-31 16:23] LABS: CALCIUM 9.3 mg/dL (8.5-10.1)
[2021-12-31 16:24] LABS: ALBUMIN 3.5 g/dl (3.4-5.0); BLOOD UREA NITROGEN 15.7 mg/dL (7-18)
[2021-12-31 16:27] LABS: CREATININE 0.7 mg/dL (0.55-1.3)
[2021-12-31 16:29] LABS: BILIRUBIN,TOTAL 0.5 mg/dL (0.2-1); TOT PROT 6.3 g/dl (6.4-8.2)
[2021-12-31] MEDS: METHOCARBAMOL 500 MG TABLET PO PRN (18:43)
[2021-12-31] MEDS: THIAMINE HCL 100 MG TABLET (FP) PO SCH (22:18)
[2021-12-31] MEDS: SUVOREXANT 10 MG TABLET PO PRN (22:56)
[2022-01-01] MEDS: diazePAM 5 MG TABLET PO PRN (00:51)
[2022-01-01] MEDS: NICOTINE 10 MG CARTRIDGE (INHALER) IH PRN ×2 (00:55→22:13)
[2022-01-01] MEDS: diazePAM 5 MG TABLET PO SCH (05:00)
[2022-01-01] MEDS: hydrOXYzine PAMOATE 25 MG CAPSULE (FP) PO PRN ×2 (05:01→14:45)
[2022-01-01] MEDS: METHOCARBAMOL 500 MG TABLET PO PRN ×4 (05:01→22:12)
[2022-01-01] MEDS: chlordiazePOXIDE HCL 25 MG CAPSULE PO SCH ×3 (10:13→22:09)
[2022-01-01] MEDS: PRENATAL VITAMINS W/ FOLIC ACID TABLET (FP) PO SCH (10:15)
[2022-01-01] MEDS: NICOTINE 21 MG/24 HOURS TOPICAL PATCH TD SCH (10:15)
[2022-01-01] MEDS: FAMOTIDINE 20 MG TABLET PO SCH (10:15)
[2022-01-01] MEDS: ACETAMINOPHEN 325 MG TABLET (FP) PO PRN (10:16)
[2022-01-01] MEDS: cloNIDine HCL 0.1 MG TABLET PO PRN (14:44)
[2022-01-01] MEDS: chlordiazePOXIDE HCL 25 MG CAPSULE PO PRN (15:30)
[2022-01-01] MEDS ORDERED: methaDONE HCL 10 MG TABLET PO ONE (15:31)
[2022-01-01] MEDS ORDERED: P-EPHED 60MG/TRIPROLIDI 2.5MG TABLET PO PRN (18:27)
[2022-01-01] MEDS: SUVOREXANT 10 MG TABLET PO PRN (22:08)
[2022-01-01] MEDS: THIAMINE HCL 100 MG TABLET (FP) PO SCH (22:09)
[2022-01-02] MEDS: chlordiazePOXIDE HCL 25 MG CAPSULE PO SCH ×4 (04:35→22:25)
[2022-01-02] MEDS: METHOCARBAMOL 500 MG TABLET PO PRN ×2 (04:37→10:14)
[2022-01-02] MEDS ORDERED: diazePAM 5 MG TABLET PO SCH (06:00)
[2022-01-02] MEDS: IBUPROFEN 600 MG TABLET (FP) PO PRN ×2 (06:54→20:29)
[2022-01-02] MEDS: hydrOXYzine PAMOATE 25 MG CAPSULE (FP) PO PRN ×2 (06:54→13:17)
[2022-01-02] MEDS: chlordiazePOXIDE HCL 25 MG CAPSULE PO PRN (08:11)
[2022-01-02] MEDS ORDERED: methaDONE HCL 10 MG TABLET (FOR DETOX USE ONLY) PO ONE (10:00)
[2022-01-02] MEDS: PRENATAL VITAMINS W/ FOLIC ACID TABLET (FP) PO SCH (10:14)
[2022-01-02] MEDS: NICOTINE 21 MG/24 HOURS TOPICAL PATCH TD SCH (10:14)
[2022-01-02] MEDS: FAMOTIDINE 20 MG TABLET PO SCH (10:15)
[2022-01-02] MEDS: cloNIDine HCL 0.1 MG TABLET PO PRN ×2 (13:17→20:28)
[2022-01-02] MEDS ORDERED: SUVOREXANT 15 MG TABLET PO PRN (22:00)
[2022-01-02] MEDS: THIAMINE HCL 100 MG TABLET (FP) PO SCH (22:25)
[2022-01-03] MEDS: hydrOXYzine PAMOATE 25 MG CAPSULE (FP) PO PRN (02:44)
[2022-01-03] MEDS: chlordiazePOXIDE HCL 25 MG CAPSULE PO PRN (02:45)
[2022-01-03] MEDS: METHOCARBAMOL 500 MG TABLET PO PRN ×2 (02:47→10:33)
[2022-01-03] MEDS: chlordiazePOXIDE HCL 25 MG CAPSULE PO SCH ×2 (05:56→10:33)
[2022-01-03] MEDS ORDERED: diazePAM 5 MG TABLET PO SCH (06:00)
[2022-01-03 09:33] VITALS: BP 117/65; PULSE 60; RESP 18; TEMP 97.3
[2022-01-03] MEDS: NICOTINE 21 MG/24 HOURS TOPICAL PATCH TD SCH (10:33)
[2022-01-03] MEDS: PRENATAL VITAMINS W/ FOLIC ACID TABLET (FP) PO SCH (10:33)
[2022-01-03] MEDS: FAMOTIDINE 20 MG TABLET PO SCH (11:02)
[2022-01-04] MEDS ORDERED: chlordiazePOXIDE HCL 10 MG CAPSULE PO PRN
[2022-01-04] MEDS ORDERED: chlordiazePOXIDE HCL 10 MG CAPSULE PO SCH (05:00)
[2022-01-04] MEDS ORDERED: diazePAM 5 MG TABLET PO ONE (06:00)
[2022-01-04] MEDS ORDERED: methaDONE HCL 10 MG TABLET (FOR DETOX USE ONLY) PO ONE (10:00)
[2022-01-05] MEDS ORDERED: chlordiazePOXIDE HCL 10 MG CAPSULE PO SCH (05:00)
[2022-01-06] MEDS ORDERED: chlordiazePOXIDE HCL 10 MG CAPSULE PO ONE (05:00)
== END 2022-01-03 11:51 | disposition left against medical advice (07) | DRG 770 ==
LOC: YASAS 15:18 → Y6N 21:02
PROVIDERS: ADMIT Allergy & Immunology; ATTEND Surgery
PROC: HZ2ZZZZ Detoxification Services for Substance Abuse Treatment (ICD-10-PCS; principal; 2021-12-30)
DX: F11.23 Opioid dependence with withdrawal (principal); F13.20 Sedative, hypnotic or anxiolytic dependence, uncomplicated; F12.20 Cannabis dependence, uncomplicated; F17.210 Nicotine dependence, cigarettes, uncomplicated; F19.282 Other psychoactive substance dependence with psychoactive substance-induced sleep disorder; F19.280 Other psychoactive substance dependence with psychoactive substance-induced anxiety disorder; Z86.79 Personal history of other diseases of the circulatory system; Z28.310 Unvaccinated for COVID-19; Z28.9 Immunization not carried out for unspecified reason
CPT/HCPCS: 36415; 80053; 83036; 85027; 86780; C9803-CS; Q0162; U0003; U0005

== ENCOUNTER 2022-10-31 11:33 | Inpatient (IN) | payer OTHER ==
[2022-10-31 11:59] VITALS: BMI 20.9
[2022-10-31] MEDS ORDERED: guaiFENesin 600 MG TABLET.ER (FP) PO PRN (13:47)
[2022-10-31] MEDS ORDERED: NALOXONE HCL (KLOXXADO) 8 MG SPRAY NS PRN (13:47)
[2022-10-31] MEDS ORDERED: LOPERAMIDE HCL 2 MG CAPSULE PO PRN (13:47)
[2022-10-31] MEDS ORDERED: IBUPROFEN 600 MG TABLET (FP) PO PRN (13:47)
[2022-10-31] MEDS ORDERED: DICYCLOMINE HCL 10 MG CAPSULE PO PRN (13:47)
[2022-10-31] MEDS ORDERED: hydrOXYzine PAMOATE 25 MG CAPSULE (FP) PO PRN (13:47)
[2022-10-31] MEDS ORDERED: ACETAMINOPHEN 325 MG TABLET (FP) PO PRN (13:47)
[2022-10-31] MEDS ORDERED: BISMUTH SUBSALICYLATE 524 MG/30 ML PO PRN (13:47)
[2022-10-31] MEDS ORDERED: BENZOCAINE/MENTHOL (CHLORASEPTIC ) LOZENGE MM PRN (13:47)
[2022-10-31] MEDS ORDERED: MAG HYDROX/AL HYDROX/SIMETH 30 ML UNIT-DOSE CUP PO PRN (13:47)
[2022-10-31] MEDS ORDERED: diazePAM 5 MG TABLET PO ONE (13:47)
[2022-10-31] MEDS ORDERED: NICOTINE POLACRILEX 2 MG GUM BUC PRN (13:47)
[2022-10-31] MEDS ORDERED: BENZONATATE 200 MG CAPSULE PO PRN (13:47)
[2022-10-31] MEDS ORDERED: ONDANSETRON *ODT* 4 MG TABLET SL PRN (13:47)
[2022-10-31] MEDS ORDERED: IBUPROFEN 400 MG TABLET (FP) PO PRN (13:47)
[2022-10-31] MEDS ORDERED: NALOXONE HCL 0.4 MG/ML VIAL IM PRN (13:47)
[2022-10-31] MEDS ORDERED: POLYETHYLENE GLYCOL (HEALTHYLAX) 3350 17 GM PACKET PO PRN (13:47)
[2022-10-31] MEDS ORDERED: MAGNESIUM HYDROX 2400MG/30ML ORAL SUSPENSION 30 ML CUP PO PRN (13:47)
[2022-10-31] MEDS: METHOCARBAMOL 500 MG TABLET PO PRN (15:14)
[2022-10-31] MEDS ORDERED: ONDANSETRON *ODT* 4 MG TABLET ONE (15:39)
[2022-10-31] MEDS ORDERED: METHOCARBAMOL 500 MG TABLET ONE (15:39)
[2022-10-31] MEDS: diazePAM 5 MG TABLET PO SCH ×2 (17:23→23:01)
[2022-10-31] MEDS: diazePAM 5 MG TABLET PO PRN (21:01)
[2022-10-31] MEDS: MELATONIN 5 MG TABLETS PO SCH (22:57)
[2022-10-31] MEDS: THIAMINE HCL 100 MG TABLET (FP) PO SCH (22:57)
[2022-11-01] MEDS: diazePAM 5 MG TABLET PO SCH ×4 (05:46→22:18)
[2022-11-01] MEDS ORDERED: methaDONE HCL 10 MG TABLET PO SCH (08:45)
[2022-11-01] MEDS: PRENATAL VITAMINS W/ FOLIC ACID TABLET (FP) PO SCH (10:25)
[2022-11-01 12:07] LABS: HEMOGLOBIN 14.7 GM/dL (11.7-16.9); MCH 27.3 pg (25.7-33.7); MCHC 33.3 g/dl (32.0-35.9); MEAN CELL VOLUME 81.8 fl (80-96); MEAN PLT VOLUME 8.7 fl (7.5-11.1); PLATELET COUNT 264 10^3/uL (134-434); RBC 5.38 M/mm3 (4.00-5.60); RDW 14.1 % (11.9-15.9); WHITE BLOOD COUNT 10.9 K/mm3 (4.0-10.0)
[2022-11-01 12:16] LABS: POTASSIUM 4.3 mmol/L (3.5-5.1)
[2022-11-01 12:35] LABS: CALCIUM 9.9 mg/dL (8.5-10.1)
[2022-11-01 12:36] LABS: ALBUMIN 3.8 g/dl (3.4-5.0)
[2022-11-01 12:39] LABS: CREATININE 0.7 mg/dL (0.55-1.3)
[2022-11-01 12:41] LABS: BILIRUBIN,TOTAL 0.8 mg/dL (0.2-1); TOT PROT 7.4 g/dl (6.4-8.2)
[2022-11-01] MEDS: diazePAM 5 MG TABLET PO PRN (13:49)
[2022-11-01] MEDS: METHOCARBAMOL 500 MG TABLET PO PRN (17:46)
[2022-11-01] MEDS ORDERED: QUEtiapine FUMARATE 100 MG TABLET (FP) PO SCH (22:00)
[2022-11-01] MEDS: THIAMINE HCL 100 MG TABLET (FP) PO SCH (22:18)
[2022-11-01] MEDS: MELATONIN 5 MG TABLETS PO SCH (22:18)
[2022-11-02] MEDS: diazePAM 5 MG TABLET PO PRN ×2 (01:11→10:45)
[2022-11-02] MEDS: diazePAM 5 MG TABLET PO SCH ×3 (05:55→22:13)
[2022-11-02] MEDS: METHOCARBAMOL 500 MG TABLET PO PRN (10:44)
[2022-11-02] MEDS: PRENATAL VITAMINS W/ FOLIC ACID TABLET (FP) PO SCH (10:44)
[2022-11-02] MEDS: MELATONIN 5 MG TABLETS PO SCH (22:12)
[2022-11-02] MEDS: THIAMINE HCL 100 MG TABLET (FP) PO SCH (22:13)
[2022-11-02] MEDS: QUEtiapine FUMARATE 200 MG TABLET PO SCH (22:13)
[2022-11-03] MEDS: diazePAM 5 MG TABLET PO SCH ×2 (05:58→17:40)
[2022-11-03] MEDS: diazePAM 5 MG TABLET PO PRN (08:45)
[2022-11-03 09:31] LABS: HEMATOCRIT 45.9 % (35.4-49); HEMOGLOBIN 15.4 GM/dL (11.7-16.9); MCH 27.5 pg (25.7-33.7); MCHC 33.6 g/dl (32.0-35.9); MEAN CELL VOLUME 81.9 fl (80-96); MEAN PLT VOLUME 8.6 fl (7.5-11.1); PLATELET COUNT 286 10^3/uL (134-434); RDW 14.1 % (11.9-15.9); WHITE BLOOD COUNT 10.3 K/mm3 (4.0-10.0)
[2022-11-03] MEDS: PRENATAL VITAMINS W/ FOLIC ACID TABLET (FP) PO SCH (09:52)
[2022-11-03] MEDS: MELATONIN 5 MG TABLETS PO SCH (22:21)
[2022-11-03] MEDS: QUEtiapine FUMARATE 200 MG TABLET PO SCH (22:21)
[2022-11-03] MEDS: THIAMINE HCL 100 MG TABLET (FP) PO SCH (22:21)
[2022-11-03] MEDS: METHOCARBAMOL 500 MG TABLET PO PRN (22:21)
[2022-11-04] MEDS ORDERED: diazePAM 5 MG TABLET PO ONE ×2 (06:00→10:00)
[2022-11-04 06:05] VITALS: TEMP 97.8
[2022-11-04 09:07] VITALS: BP 113/73; PULSE 67; RESP 18
[2022-11-04] MEDS: PRENATAL VITAMINS W/ FOLIC ACID TABLET (FP) PO SCH (09:50)
== END 2022-11-04 10:26 | disposition home or self-care (01) | DRG 773 ==
LOC: YASAS 11:33 → Y3N 13:56
PROVIDERS: ADMIT Allergy & Immunology; ATTEND Allergy & Immunology
PROC: HZ2ZZZZ Detoxification Services for Substance Abuse Treatment (ICD-10-PCS; principal; 2022-10-31)
DX: F13.230 Sedative, hypnotic or anxiolytic dependence with withdrawal, uncomplicated (principal); F11.20 Opioid dependence, uncomplicated; F12.20 Cannabis dependence, uncomplicated; F17.210 Nicotine dependence, cigarettes, uncomplicated; F19.24 Other psychoactive substance dependence with psychoactive substance-induced mood disorder; F41.0 Panic disorder [episodic paroxysmal anxiety]; G47.00 Insomnia, unspecified; K21.9 Gastro-esophageal reflux disease without esophagitis; Z87.19 Personal history of other diseases of the digestive system
CPT/HCPCS: 36415; 80053; 85027; 86780; 87635; Q0162